=== PATIENT | female | born 1975 ===

== ENCOUNTER 2022-10-10 06:44 | Inpatient (IN) | payer BC ==
[~2022-10-10] VITALS: Ht 162.6 cm; Wt 111.2 kg
[2022-10-10 12:20] VITALS: BP 156/85
[2022-10-10] MEDS ORDERED: loperamide 2mg capsule PO PRN (12:40)
[2022-10-10] MEDS ORDERED: magnesium hydroxide 30ml (MOM) UD suspension PO PRN (12:40)
[2022-10-10] MEDS ORDERED: mag hydrox/Alum hydrox/simeth 30ml oral suspension PO PRN (12:40)
[2022-10-10] MEDS ORDERED: acetaminophen 325mg tablet PO PRN ×2 (12:40)
[2022-10-10] MEDS ORDERED: QUET100T34 PO (12:55)
[2022-10-10] MEDS ORDERED: ERGO500056 PO (12:55)
[2022-10-10] MEDS ORDERED: LEVO1TAB80 PO (12:55)
[2022-10-10] MEDS ORDERED: BUPR-317 PO (12:55)
[2022-10-10] MEDS ORDERED: ALPR1TAB7 PO (12:55)
--- NOTE | 2022-10-10 13:00 | NUR ---
Admit note: Pt admitted today to [facility] on 5150 for intentional overdose on antifreeze and prescription medications. Pts fiance recently committed suicide. Pt has history of anxiety, depression, arthritis.
[2022-10-10] MEDS ORDERED: LORazepam 1 MG tablet PO PRN (13:15)
[2022-10-10 19:00] VITALS: BP 140/82
[2022-10-10] MEDS ORDERED: traZODone 50mg tablet PO SCH (21:00)
--- NOTE | 2022-10-11 03:58 | NUR ---
NURSING PROGRESS NOTE Patient sitting quietly in room reading a book at change of shift. Isolates to self. Pleasant and approachable. Patient later observed standing in [address] talking on the phone then returns to room afterwards. Pleasantly refused her only bedtime medication; scheduled trazodone. Denies SI/HI,AH/VH and depression. Slept through the night. Appears to be sleeping without difficulty.
[2022-10-11 08:00] VITALS: BP 162/94
[2022-10-11] MEDS: buproprion 150mg XL (24-hour) tablet PO SCH ×2 (08:00→08:06)
[2022-10-11] MEDS ORDERED: LEVONORGESTREL ETHIN ESTRADIOL PO SCH (08:00)
[2022-10-11 09:06] LABS: CHOL/HDL RATIO 2.4 (0.00-4.99); CHOLESTEROL 199 MG/DL (0-200); HDL CHOLESTEROL 82 MG/DL (35-60); LDL CHOLESTEROL 101 MG/DL (50-100); TRIGLYCERIDES 48 MG/DL (20-135)
[2022-10-11 09:31] LABS: HEMOGLOBIN A1C 5.6 % (4.5-6.2)
--- NOTE | 2022-10-11 17:16 | NUR ---
PROGRESS NOTE Pt up to community room in the AM for breakfast, pt refused AM meds, laughed and stated she didnt take any of the medications and wouldnt be taking them. Pt educated on medication and benefits, refusal persisted. Pt noted to be wandering the hallways on the phone with family for most of the day aside from meal time.
[2022-10-11] MEDS ORDERED: TRAZ-251 PO (18:43)
--- NOTE | 2022-10-11 19:56 | NUR ---
DISCHARGE NOTE patient discharged to home at 1755 with all belongings. Discharge instructions given to patient and were signed. Patient escorted out by staff.
== END 2022-10-11 19:55 | disposition home or self-care (01) | DRG 881 ==
LOC: ADULT MH 12:26
PROVIDERS: ADMIT Psychiatry & Neurology Psychiatry; ATTEND Psychiatry & Neurology Psychiatry
DX: F32.A Depression, unspecified (principal); T43.292A Poisoning by other antidepressants, intentional self-harm, initial encounter; Z68.41 Body mass index [BMI] 40.0-44.9, adult; F41.9 Anxiety disorder, unspecified; E66.01 Morbid (severe) obesity due to excess calories; M54.9 Dorsalgia, unspecified; F43.20 Adjustment disorder, unspecified; Z79.899 Other long term (current) drug therapy; Z80.3 Family history of malignant neoplasm of breast; Z82.49 Family history of ischemic heart disease and other diseases of the circulatory system; Z83.3 Family history of diabetes mellitus; Y92.89 Other specified places as the place of occurrence of the external cause; Z88.8 Allergy status to other drugs, medicaments and biological substances
CPT/HCPCS: 36415; 80061; 83036; 87081